=== PATIENT | female | born 1980 | race Caucasian/White ===

== ENCOUNTER 2017-07-27 05:21 | Day surgery (SDC) | payer BC, OTHER ==
[~2017-07-27] VITALS: Ht 167.6 cm; Wt 75.4 kg
[2017-07-27 06:07] VITALS: BP 102/68
[2017-07-27] MEDS ORDERED: PREN1COM10 PO (06:13)
[2017-07-27] MEDS ORDERED: LACTATED RINGERS 1,000 ML IV SCH (06:26)
[2017-07-27] MEDS ORDERED: LIDOCAINE 1%, 2ML ONE (06:29)
[2017-07-27] MEDS ORDERED: LIDOCAINE 1%, 2ML SQ PRN (06:30)
[2017-07-27] MEDS ORDERED: GABAPENTIN 300 MG CAPSULE PO SCH (06:30)
[2017-07-27] MEDS ORDERED: ACETAMINOPHEN 500 MG TABLET PO ONE (06:30)
[2017-07-27] MEDS ORDERED: METHYLERGONOVINE 0.2 MG/ML IM ONE (06:36)
[2017-07-27] MEDS ORDERED: MISOPROSTOL 200 MCG TABLET ONE (06:36)
[2017-07-27] MEDS ORDERED: OXYTOCIN 10 UNITS/ML, 1ML ONE (06:36)
[2017-07-27] MEDS ORDERED: BUPIVACAINE/PF 0.25% ONE (06:37)
[2017-07-27] MEDS ORDERED: EPINEPHRINE 1 MG/ML, 1ML ONE (06:37)
[2017-07-27] MEDS ORDERED: MIDAZOLAM 1 MG/ML, 2ML ONE (06:40)
[2017-07-27] MEDS ORDERED: SUCCINYLCHOLINE 20 MG/ML, 10ML ONE (06:41)
[2017-07-27] MEDS ORDERED: PROPOFOL 10 MG/ML, 20ML ONE (06:41)
[2017-07-27] MEDS ORDERED: FENTANYL PF 100 MCG/2ML ONE (06:41)
[2017-07-27] MEDS ORDERED: ROCURONIUM 10 MG/ML ONE (06:42)
[2017-07-27] MEDS ORDERED: ONDANSETRON 2MG/ML, 2ML ONE ×2 (06:42)
[2017-07-27] MEDS ORDERED: DEXAMETHASONE 4 MG/ML, 1ML ONE ×2 (06:42)
[2017-07-27] MEDS ORDERED: MEPERIDINE/PF 25MG/0.5ML IVPush PRN (07:00)
[2017-07-27] MEDS ORDERED: ALBUTEROL SULFATE 2.5 MG/3 ML NPPB PRN (07:00)
[2017-07-27] MEDS ORDERED: HYDROmorphone 1 MG/ML, 1ML IV PRN (07:00)
[2017-07-27] MEDS ORDERED: OXYcodone 5 MG/5 ML ORAL.SOL UDC PO PRN (07:00)
[2017-07-27] MEDS ORDERED: PROMETHAZINE 25 MG/ML, 1ML IV PRN (07:00)
[2017-07-27] MEDS ORDERED: MIDAZOLAM 1 MG/ML, 2ML IV PRN (07:00)
[2017-07-27] MEDS ORDERED: FENTANYL PF 100 MCG/2ML IV PRN (07:00)
[2017-07-27] MEDS ORDERED: ONDANSETRON 2MG/ML, 2ML IVPush PRN (07:00)
[2017-07-27] MEDS ORDERED: hydrALAzine 20 MG/ML, 1ML IV PRN (07:00)
[2017-07-27] MEDS ORDERED: CEFAZOLIN 1,000 MG ONE (07:00)
[2017-07-27] MEDS ORDERED: LABETALOL 5MG/ML, 20ML IV PRN (07:00)
[2017-07-27] MEDS ORDERED: BUPIVACAINE/PF-EPI 0.25% 1:200K INFIL ONE (07:20)
[2017-07-27 08:11] VITALS: BP 109/62
== END 2017-07-27 09:50 ==
LOC: OUT 05:21
PROVIDERS: ATTEND Obstetrics & Gynecology
DX: O02.1 Missed abortion (principal)
CPT/HCPCS: 36415; 59820; 86850; 86900; 88305; J0171; J0690; J1100; J2210; J2250; J2405; J2704; J2790; J3010; J3490; J7120; J0330; J2590

== ENCOUNTER 2018-05-31 05:37 | Inpatient (IN) | payer OTHER ==
[~2018-05-31] VITALS: Ht 167.6 cm; Wt 86.3 kg
[~2018-05-31 05:37] MED LIST: PREN1COM10 PO
[2018-05-31] MEDS ORDERED: OXYTOCIN 30U/ 0.9% NaCL 500ML 500 ML IV SCH (05:41)
[2018-05-31] MEDS ORDERED: LACTATED RINGERS 1,000 ML IV SCH ×2 (05:41→06:00)
[2018-05-31 05:51] VITALS: BP 106/67
[2018-05-31] MEDS ORDERED: METOCLOPRAMIDE 5 MG/ML, 2ML IV ONE (06:00)
[2018-05-31] MEDS ORDERED: LACTATED RINGERS 1,000 ML IVBOLUS ONE (06:00)
[2018-05-31] MEDS ORDERED: SODIUM CITRATE/CITRIC ACID 30 ML UDC PO ONE (06:00)
[2018-05-31 06:15] LABS: BASOPHILS # (AUTO) 0.02 x10^3/uL (0-0.1); BASOPHILS % (AUTO) 0 % (0-1); EOSINOPHILS % (AUTO) 1 % (1-7); LYMPHOCYTES # (AUTO) 1.37 x10^3/uL (1-3.4); LYMPHOCYTES % (AUTO) 15 % (22-44); MD NO; MEAN CORPUSCULAR HEMOGLOBIN 31.8 pg (27.0-34.8); MEAN CORPUSCULAR HGB CONC 34.6 g/dL (32.4-35.8); MEAN CORPUSCULAR VOLUME 91.9 fL (80-100); MEAN PLATELET VOLUME 7.7 fL (7.4-10.4); MONOCYTES # (AUTO) 0.44 x10^3/uL (0.2-0.8); MONOCYTES % (AUTO) 5 % (2-9); NEUTROPHILS # (AUTO) 7.43 x10^3/uL (1.8-6.8); NEUTROPHILS % (AUTO) 79 % (42-75); PLATELET COUNT 139 x10^3/uL (130-400); RED BLOOD COUNT 4.02 x10^6/uL (3.82-5.3); RED CELL DISTRIBUTION WIDTH 14.3 % (9.6-15.2)
[2018-05-31] MEDS ORDERED: OXYTOCIN 30U/ 0.9% NaCL 500ML 500 ML ONE (06:28)
[2018-05-31] MEDS ORDERED: NEWBORN KIT ONE (06:28)
[2018-05-31] MEDS ORDERED: METOCLOPRAMIDE 5 MG/ML, 2ML ONE (06:28)
[2018-05-31] MEDS ORDERED: SODIUM CITRATE/CITRIC ACID 30 ML UDC ONE (06:28)
[2018-05-31] MEDS ORDERED: ONDANSETRON 2MG/ML, 2ML ONE (07:15)
[2018-05-31] MEDS ORDERED: OXYTOCIN 10 UNITS/ML, 1ML ONE (07:15)
[2018-05-31] MEDS ORDERED: CEFAZOLIN 1,000 MG ONE (07:15)
[2018-05-31] MEDS ORDERED: FENTANYL PF 100 MCG/2ML ONE (07:16)
[2018-05-31] MEDS ORDERED: HYDROmorphone 2 MG/ML, 1ML ONE (07:17)
[2018-05-31] MEDS ORDERED: EPHEDRINE 50 MG/ML, 1ML ONE (08:00)
[2018-05-31] MEDS: LACTATED RINGERS 1,000 ML IV SCH ×4 (08:56→18:56)
[2018-05-31] MEDS: PRENATAL VIT/IRON/FA 1 EACH TABLET PO SCH (09:00)
[2018-05-31] MEDS ORDERED: OXYcodone/APAP 5/325MG TABLET PO PRN (09:00)
[2018-05-31] MEDS ORDERED: ONDANSETRON 2MG/ML, 2ML IV PRN (09:00)
[2018-05-31] MEDS ORDERED: MISOPROSTOL 200 MCG TABLET PR PRN (09:00)
[2018-05-31] MEDS ORDERED: morphine SULFATE 10 MG/ML, 1ML IVPush PRN (09:00)
[2018-05-31] MEDS ORDERED: ACETAMINOPHEN 325 MG TABLET PO PRN ×2 (09:00)
[2018-05-31] MEDS ORDERED: METOCLOPRAMIDE 5 MG/ML, 2ML IV PRN (09:00)
[2018-05-31] MEDS ORDERED: CALCIUM CARBONATE 500 MG TAB.CHEW PO PRN (09:00)
[2018-05-31] MEDS: OXYTOCIN 30U/ 0.9% NaCL 500ML 500 ML IV SCH ×2 (10:10→18:56)
[2018-05-31 11:30] VITALS: BP 107/63
[2018-05-31] MEDS: KETOROLAC 30 MG/1 ML IV PRN ×2 (13:58→20:32)
[2018-05-31 16:00] VITALS: BP 98/59
[2018-05-31] MEDS: OXYcodone/APAP 5/325MG TABLET PO PRN ×2 (16:21→20:32)
[2018-05-31 16:49] LABS: MEAN CORPUSCULAR HEMOGLOBIN 31.2 pg (27.0-34.8); MEAN CORPUSCULAR HGB CONC 34.3 g/dL (32.4-35.8); MEAN CORPUSCULAR VOLUME 90.9 fL (80-100); MEAN PLATELET VOLUME 7.7 fL (7.4-10.4); PLATELET COUNT 122 x10^3/uL (130-400); RED BLOOD COUNT 3.76 x10^6/uL (3.82-5.3); RED CELL DISTRIBUTION WIDTH 14.2 % (9.6-15.2)
[2018-05-31 17:19] LABS: BASOPHILS # (AUTO) 0.02 x10^3/uL (0-0.1); BASOPHILS % (AUTO) 0 % (0-1); EOSINOPHILS # (AUTO) 0.01 x10^3/uL (0-0.4); EOSINOPHILS % (AUTO) 0 % (1-7); LYMPHOCYTES # (AUTO) 1.06 x10^3/uL (1-3.4); LYMPHOCYTES % (AUTO) 9 % (22-44); MD SCAN; MONOCYTES # (AUTO) 0.46 x10^3/uL (0.2-0.8); MONOCYTES % (AUTO) 4 % (2-9); NEUTROPHILS # (AUTO) 10.07 x10^3/uL (1.8-6.8); NEUTROPHILS % (AUTO) 87 % (42-75)
[2018-05-31] MEDS: DOCUSATE 100 MG CAPSULE PO PRN (20:32)
[2018-05-31 21:00] VITALS: BP 96/59
[2018-06-01 00:10] VITALS: BP 95/58
[2018-06-01] MEDS: LACTATED RINGERS 1,000 ML IV SCH ×2 (00:56→04:56)
[2018-06-01] MEDS: KETOROLAC 30 MG/1 ML IV PRN ×2 (02:49→08:47)
[2018-06-01] MEDS: OXYcodone/APAP 5/325MG TABLET PO PRN ×2 (02:50→13:29)
[2018-06-01 04:00] VITALS: BP 92/58
[2018-06-01] MEDS: OXYTOCIN 30U/ 0.9% NaCL 500ML 500 ML IV SCH (04:56)
[2018-06-01 07:10] VITALS: BP 95/60
[2018-06-01] MEDS: DOCUSATE 100 MG CAPSULE PO PRN ×2 (08:47→20:56)
[2018-06-01] MEDS: PRENATAL VIT/IRON/FA 1 EACH TABLET PO SCH (08:47)
[2018-06-01] MEDS ORDERED: IBUPROFEN 600 MG TABLET ONE ×2 (14:53→20:55)
[2018-06-01] MEDS: IBUPROFEN 600 MG TABLET PO PRN ×2 (14:55→20:56)
[2018-06-01 20:50] VITALS: BP 102/63
[2018-06-02] MEDS: OXYcodone/APAP 5/325MG TABLET PO PRN ×2 (00:33→11:28)
[2018-06-02] MEDS ORDERED: IBUPROFEN 600 MG TABLET ONE (03:13)
[2018-06-02] MEDS: IBUPROFEN 600 MG TABLET PO PRN ×2 (03:14→09:37)
[2018-06-02] MEDS: PRENATAL VIT/IRON/FA 1 EACH TABLET PO SCH (09:37)
[2018-06-02] MEDS: DOCUSATE 100 MG CAPSULE PO PRN (09:37)
[2018-06-02 09:39] VITALS: BP 114/75
[2018-06-02] MEDS ORDERED: SENN-92 PO (12:21)
[2018-06-02] MEDS ORDERED: OXYC-302 PO (12:21)
== END 2018-06-02 13:20 | disposition home or self-care (01) | DRG 765 ==
LOC: LDIP 05:37 → 2NW 10:55
PROVIDERS: ADMIT Obstetrics & Gynecology; ATTEND Obstetrics & Gynecology
PROC: 10D00Z1 Extraction of Products of Conception, Low, Open Approach (ICD-10-PCS; principal; 2018-05-31)
PROC: 0UT60ZZ Resection of Left Fallopian Tube, Open Approach (ICD-10-PCS; 2018-05-31)
PROC: 0UB50ZZ Excision of Right Fallopian Tube, Open Approach (ICD-10-PCS; 2018-05-31)
DX: O34.211 Maternal care for low transverse scar from previous cesarean delivery (principal); O99.12 Other diseases of the blood and blood-forming organs and certain disorders involving the immune mechanism complicating childbirth; D68.51 Activated protein C resistance; Z37.0 Single live birth; Z3A.39 39 weeks gestation of pregnancy; Z80.0 Family history of malignant neoplasm of digestive organs; Z84.1 Family history of disorders of kidney and ureter; Z30.2 Encounter for sterilization
CPT/HCPCS: 36415; 85025; 86850; 86900; 88302; J0690; J1170; J1885; J2405; J3010; J2590; J2765; J7120